=== PATIENT | male | born 1950 | race Caucasian/White ===

== ENCOUNTER 2018-03-26 10:55 | Outpatient (CLI) | payer MEDICARE, OTHER | END 2018-03-26 10:56 | disposition home or self-care (01) | LOC: BICMRI 10:55 | PROVIDERS: ATTEND Specialist | DX: M43.16 Spondylolisthesis, lumbar region (principal); M47.896 Other spondylosis, lumbar region; I71.4 Abdominal aortic aneurysm, without rupture; M48.061 Spinal stenosis, lumbar region without neurogenic claudication; M99.83 Other biomechanical lesions of lumbar region | CPT/HCPCS: 70250; 72120; 72148 ==

== ENCOUNTER 2019-07-21 13:08 | Outpatient (CLI) | payer MEDICARE, OTHER ==
--- NOTE | 2019-07-21 14:57 | RAD ---
4 VIEWS LUMBAR SPINE: Date: 07/21/19 COMPARISON: 03/26/18. HISTORY: Degenerative joint disease, spondylolisthesis. FINDINGS: There is an endograft associated with the abdominal aorta and common femoral arteries treating an inf rarenal abdominal aortic aneurysm. There are stimulating leads in the thoracic region, incompletely a ssessed on this exam. There is no significant anterolisthesis or retrolisthesis seen within the lumbar spine. There is post erior fusion hardware, including bilateral pedicle screws and vertically oriented interlocking rods a t L4 and L5. There is disc space narrowing with degenerative end plate change at the lumbosacral junc tion. On the flexion and extension views, there is no significant anterolisthesis or retrolisthesis noted. IMPRESSION: Degenerative and postoperative changes as detailed above. POS: TPC
--- NOTE | 2019-07-21 16:15 | CT ---
CT LUMBAR SPINE: Date: 07/21/19 COMPARISON: None. HISTORY: Lumbar spondylolisthesis, long history of low back pain with bilateral hip radiculopathy. TECHNIQUE: Axial CT imaging is obtained at 3 mm intervals through the lumbar spine without contrast. Coronal and sagittal reformatted imaging obtained. FINDINGS: Evaluation for central canal and/or neural foraminal stenosis is limited on routine CT examination. T here is an incompletely imaged abdominal aortic aneurysm involving the proximal abdominal aorta at th e level of the diaphragmatic hiatus measuring 4.1 x 4.0 cm. There is a stent graft treating an infrar enal abdominal aorta aneurysm, incompletely assessed on this exam. There is a mass within the left ad renal gland demonstrating Hounsfield units of approximately 25-30. This is thus a nonspecific lesion for which follow-up adrenal mass protocol CT of the abdomen is advised. There are bilateral L4 and L5 pedicle screws with vertically oriented interlocking rods. There is no evidence for hardware failure. Incompletely imaged dorsal column stimulating leads extend into the th oracic spine region. T12-L1: No osseous cause of significant central canal or neural foraminal stenosis. L1-2: No osseous cause of significant central canal or neural foraminal stenosis. L2-3: Mild bilateral facet hypertrophy. No osseous cause of significant central canal or neural fora lyndsay stenosis. L3-4: There is disc bulge with prominent bilateral facet hypertrophy. There is hypertrophy of the li gamentum flavum, left greater than right. This causes at least mild/moderate central canal stenosis a nd left lateral recess stenosis. No osseous cause of significant neural foraminal stenosis. L4-5: Minimal anterolisthesis of L4 on L5 measures in the 2-3 mm range. There is bilateral facet hyp ertrophy with probably mild bilateral neural foraminal stenosis and at least mild central canal steno sis. L5-S1: There is disc space narrowing and vacuum disc formation. There is facet osteophyte formation with at least mild left neural foraminal stenosis. No osseous cause of significant central canal or r ight neural foraminal stenosis. No worrisome lytic or blastic bone lesion. No acute fracture or dislo cation. IMPRESSION: 1. Postoperative and degenerative change within the lumbar spine as detailed above. 2. Left adrenal mass, for which follow-up CT examination is advised. 3. Incompletely assessed aneurysm of the proximal abdominal aorta, for which CT angiogram is advised . CODE T. POS: TPC
--- NOTE | 2019-07-21 16:19 | CT ---
CT pelvis without contrast HISTORY: Sacral insufficiency fracture Comparison none FINDINGS: There is evidence of an endovascular stent remaining aneurysmal abdominal aorta. Limited evaluation t echnique. Questionable gallstones. Solid organs and alimentary canal are otherwise normal. There is evidence of fusion hardware in the inferior lumbar spine. No perihardware lucency. Visualize d lumbar vertebra do not demonstrate a fracture Sacroiliac joints are patent and symmetric. Bony pelvis is intact Contour of both femoral heads are maintained. Hip joint spaces are symmetric. With regard to the sacrum, there is no evidence of a fracture. Coronal images demonstrate patent bila teral sacral neural foramina. There is vacuum disc phenomenon at the lumbosacral junction. IMPRESSION: No evidence of a sacral fracture.
== END 2019-07-21 13:09 | disposition home or self-care (01) ==
LOC: BICCT 13:08
PROVIDERS: ATTEND Specialist
DX: M84.48XA Pathological fracture, other site, initial encounter for fracture (principal); M43.16 Spondylolisthesis, lumbar region; M47.816 Spondylosis without myelopathy or radiculopathy, lumbar region; E27.9 Disorder of adrenal gland, unspecified; Z98.890 Other specified postprocedural states
CPT/HCPCS: 72110; 72131; 72192

== ENCOUNTER 2021-03-21 13:23 | Outpatient (CLI) | payer MEDICARE, OTHER ==
[~2021-03-21 13:23] MED LIST: Magnevist 469MG/ML 20 ML VIAL ONE
== END 2021-03-21 13:24 | disposition home or self-care (01) ==
LOC: MRI 13:23
PROVIDERS: ATTEND Nurse Practitioner Family
DX: M43.16 Spondylolisthesis, lumbar region (principal); M47.816 Spondylosis without myelopathy or radiculopathy, lumbar region; M47.817 Spondylosis without myelopathy or radiculopathy, lumbosacral region; Z98.890 Other specified postprocedural states
CPT/HCPCS: 71045; 72100; 72158; A9579

== ENCOUNTER 2021-08-13 14:06 | Outpatient (CLI) | payer MEDICARE, OTHER | END 2021-08-13 14:07 | disposition home or self-care (01) | LOC: BICCT 14:06 → CT 14:07 | PROVIDERS: ATTEND Neurological Surgery | DX: M54.5 Low back pain (principal); M43.16 Spondylolisthesis, lumbar region; M47.816 Spondylosis without myelopathy or radiculopathy, lumbar region; I71.9 Aortic aneurysm of unspecified site, without rupture; E27.8 Other specified disorders of adrenal gland; Z98.1 Arthrodesis status | CPT/HCPCS: 72131 ==

== ENCOUNTER 2022-04-08 10:14 | Outpatient (CLI) | payer MEDICARE, OTHER | END 2022-04-08 10:15 | disposition home or self-care (01) | LOC: BICCT 10:14 | PROVIDERS: ATTEND Specialist | DX: M51.17 Intervertebral disc disorders with radiculopathy, lumbosacral region (principal); M48.061 Spinal stenosis, lumbar region without neurogenic claudication; Z98.890 Other specified postprocedural states | CPT/HCPCS: 72131 ==